=== PATIENT | male | born 1990 | race Caucasian/White ===

== ENCOUNTER 2017-12-15 21:22 | Emergency (ER) | payer OTHER ==
[~2017-12-15] VITALS: Ht 180.3 cm; Wt 72.1 kg
[2017-12-15] MEDS ORDERED: TOBRADEX EYE DR10 ML OP (23:04)
== END 2017-12-15 23:44 | disposition home or self-care (01) ==
LOC: ER 21:22
DX: H10.89 Other conjunctivitis (principal)

== ENCOUNTER 2021-09-30 13:06 | Emergency (ER) | payer OTHER ==
[~2021-09-30] VITALS: Ht 180.3 cm; Wt 70.8 kg
[~2021-09-30 13:06] MED LIST: TOBRADEX EYE DR10 ML OP
[2021-09-30] MEDS ORDERED: KETO10TA2 PO (16:13)
[2021-09-30] MEDS ORDERED: AMOX-CLAV 875-1 EACH PO (16:13)
== END 2021-09-30 16:19 | disposition home or self-care (01) ==
LOC: ER 13:06
DX: H92.02 Otalgia, left ear (principal); Z20.822 Contact with and (suspected) exposure to COVID-19